=== PATIENT | male | born 1930 | race Caucasian/White ===

== ENCOUNTER 2017-10-05 03:23 | Inpatient (IN) | payer MEDICARE ==
[~2017-10-05] VITALS: Ht 144.8 cm; Wt 74.8 kg
[2017-10-05 03:30] VITALS: BP 141/56
[2017-10-05] MEDS ORDERED: CLOP75TA15 PO (04:39)
[2017-10-05] MEDS ORDERED: ATOR10TA PO (04:39)
[2017-10-05] MEDS ORDERED: CEPH-570 PO (04:39)
[2017-10-05] MEDS ORDERED: METO50TA16 PO (04:39)
[2017-10-05] MEDS ORDERED: AMLO10TA2 PO (04:39)
[2017-10-05] MEDS ORDERED: LISI40TA4 PO (04:39)
[2017-10-05] MEDS ORDERED: ONDANSETRON 4 MG/2 ML VIAL IV PRN (05:45)
[2017-10-05] MEDS ORDERED: MAGNESIUM HYDROXIDE 30 ML LIQUID UDC PO PRN (05:45)
[2017-10-05] MEDS ORDERED: MORPHINE SULFATE 2 MG/1 ML DISP.SYRIN IV PRN (05:45)
[2017-10-05] MEDS ORDERED: HYDROCODONE/APAP 5-325MG TABLET PO PRN (05:45)
[2017-10-05] MEDS ORDERED: ZOLPIDEM 5 MG TABLET PO PRN (05:45)
[2017-10-05] MEDS: IV NS 1000 ML 1,000 ML IV PRN (06:37)
[2017-10-05 08:11] LABS: *BLOOD, URINE 3+ (NEGATIVE); *CLARITY,URINE CLOUDY (CLEAR); *COLOR,URINE YELLOW (YELLOW); *KETONES,URINE TRACE (NEGATIVE); *PROTEIN,URINE 2+ (NEGATIVE); *UROBILINOGEN,URINE 0.2 E.U./dl (NORMAL); LEUKOCYTE ESTERASE ,URINE NEGATIVE (NEGATIVE); NITRITE, URINE NEGATIVE (NEGATIVE); PH,URINE 5.5 (5.0-8.0); UGLUCOSE NEGATIVE (NEGATIVE)
[2017-10-05 08:27] LABS: *BILIRUBIN,URIN 1+ (NEGATIVE)
[2017-10-05] MEDS: CLOPIDOGREL 75 MG TABLET PO SCH (09:00)
[2017-10-05 09:06] LABS: BACTERIA,URINE FEW /HPF (NONE SEEN); RBC,URINE 50-80 /HPF (0-3); SQUAMOUS EPITHELIAL CELL,UR FEW /HPF (NONE SEEN)
[2017-10-05 10:16] LABS: BASOPHILS % (AUTO) 0.6 % (0.0-2.0); EOSINOPHILS % (AUTO) 0.5 % (0.0-7.0); HEMATOCRIT 32.9 % (36.7-47.1); HEMOGLOBIN 11.1 g/dL (12.5-16.3); LYMPHOCYTES # (AUTO) 0.3 K/uL (20.0-40.0); LYMPHOCYTES % (AUTO) 3.9 % (20.5-51.5); MEAN CORPUSCULAR HEMOGLOBIN 29.8 uug (23.8-33.4); MEAN CORPUSCULAR HGB CONC 34 g/dL (32.5-36.3); MEAN CORPUSCULAR VOLUME 88.6 fL (73.0-96.2); MONOCYTES # (AUTO) 0.5 K/uL (2.0-10.0); MONOCYTES % (AUTO) 6.4 % (0.0-11.0); NEUTROPHILS # (AUTO) 6.9 K/uL (1.8-8.9); NEUTROPHILS % (AUTO) 88.6 % (38.5-71.5); PLATELET COUNT (AUTO) 334 K/uL (152-348); RED BLOOD CELL COUNT(AUTO) 3.72 MIL/uL (4.06-5.63); WHITE BLOOD COUNT (AUTO) 7.7 K/uL (3.6-10.2)
[2017-10-05] MEDS: CEFTRIAXONE 1 G in IV DEXTROSE 5% 50 ML IV SCH (10:20)
[2017-10-05] MEDS: AMLODIPINE 10 MG TABLET PO SCH (10:21)
[2017-10-05] MEDS: METOPROLOL TARTRATE 50 MG TABLET PO SCH (10:21)
[2017-10-05 10:22] LABS: ALANINE AMINOTRANSFERASE 34 U/L (16-63); ALKALINE PHOSPHATASE 64 U/L (50-136); ASPARTATE AMINOTRANSFERASE 30 U/L (15-37); BILIRUBIN,TOTAL 0.3 mg/dL (0.2-1.0); CARBON DIOXIDE 26 mmol/L (21-32); CHLORIDE 106 mmol/L (98-107); CREATININE 1.1 mg/dL (0.6-1.3); GLUCOSE 120 mg/dL (74-106); MAGNESIUM 1.7 mg/dL (1.8-2.4); PHOSPHOROUS 3.4 mg/dL (2.5-4.9); POTASSIUM 4.1 mmol/L (3.5-5.1); TOTAL PROTEIN, SERUM 6.9 g/dL (6.4-8.2); UREA NITROGEN, BLOOD 18 mg/dL (7-18)
[2017-10-05] MEDS: ACETAMINOPHEN 325 MG TABLET PO PRN (10:23)
[2017-10-05 11:08] VITALS: BP 144/61
[2017-10-05] MEDS ORDERED: MAGNESIUM SULFATE/D5W 100 ML IV SCH (11:30)
[2017-10-05] MEDS ORDERED: MIRALAX 17 GM POWD.PACK PO PRN (14:00)
[2017-10-05] MEDS ORDERED: ALBUTEROL SULFATE 2.5 MG/3 ML NEBU NEB PRN (14:00)
[2017-10-05] MEDS ORDERED: MIRALAX 17 GM POWD.PACK PO ONE (14:00)
[2017-10-05] MEDS ORDERED: IPRATROPIUM BROMIDE 0.5 MG/2.5 ML NEBU NEB PRN (14:00)
[2017-10-05] MEDS: MULTIVITAMINS,THERAPEUTIC TABLET PO SCH (15:46)
[2017-10-05] MEDS: FOLIC ACID 1 MG TABLET PO SCH (15:46)
[2017-10-05] MEDS: THIAMINE HCL 100 MG TABLET PO SCH (15:46)
[2017-10-05] MEDS: LISINOPRIL 20 MG TABLET PO SCH (16:18)
[2017-10-05] MEDS: LORAZEPAM 2 MG/1 ML VIAL IV PRN (16:25)
[2017-10-05] MEDS ORDERED: OLANZAPINE 10 MG VIAL IM ONE ×2 (17:00)
[2017-10-05 17:24] VITALS: BP 112/59
[2017-10-05 20:00] VITALS: BP 127/61
[2017-10-05] MEDS ORDERED: ATORVASTATIN 10 MG TABLET PO SCH (21:00)
[2017-10-05] MEDS: TAMSULOSIN HCL 0.4 MG CAP.SR.24H PO SCH (21:19)
[2017-10-05] MEDS: DOCUSATE SODIUM 250 MG CAPSULE PO SCH (21:20)
[2017-10-05] MEDS: FINASTERIDE 5 MG TABLET PO SCH (21:25)
[2017-10-05] MEDS ORDERED: LEVOFLOXACIN 500 MG/D5W 100 ML ONE (23:25)
[2017-10-05] MEDS: LEVOFLOXACIN 500 MG/D5W 500 MG in PREMIXED 1 EACH IV SCH (23:25)
[2017-10-06 00:19] VITALS: BP 139/65
[2017-10-06 04:00] VITALS: BP 123/56
[2017-10-06 06:58] LABS: BASOPHILS % (AUTO) 0.4 % (0.0-2.0); EOSINOPHILS % (AUTO) 0.1 % (0.0-7.0); HEMATOCRIT 29.7 % (36.7-47.1); HEMOGLOBIN 9.7 g/dL (12.5-16.3); LYMPHOCYTES # (AUTO) 0.4 K/uL (20.0-40.0); MEAN CORPUSCULAR HEMOGLOBIN 29.1 uug (23.8-33.4); MEAN CORPUSCULAR HGB CONC 33 g/dL (32.5-36.3); MEAN CORPUSCULAR VOLUME 88.9 fL (73.0-96.2); MONOCYTES # (AUTO) 0.5 K/uL (2.0-10.0); MONOCYTES % (AUTO) 7.7 % (0.0-11.0); NEUTROPHILS # (AUTO) 5.2 K/uL (1.8-8.9); NEUTROPHILS % (AUTO) 84.8 % (38.5-71.5); PLATELET COUNT (AUTO) 317 K/uL (152-348); RED BLOOD CELL COUNT(AUTO) 3.34 MIL/uL (4.06-5.63); WHITE BLOOD COUNT (AUTO) 6.2 K/uL (3.6-10.2)
[2017-10-06 07:31] LABS: THYROID STIMULATING HORMONE 0.664 mIU/mL (0.358-3.740)
[2017-10-06 07:40] LABS: IRON, SERUM 18 ug/dL (50-175)
[2017-10-06 07:55] LABS: ALANINE AMINOTRANSFERASE 30 U/L (16-63); ALKALINE PHOSPHATASE 51 U/L (50-136); ASPARTATE AMINOTRANSFERASE 41 U/L (15-37); BILIRUBIN,TOTAL 0.3 mg/dL (0.2-1.0); CARBON DIOXIDE 26 mmol/L (21-32); CHLORIDE 106 mmol/L (98-107); CREATININE 1.1 mg/dL (0.6-1.3); GLUCOSE 91 mg/dL (74-106); LIPASE 154 U/L (73-393); MAGNESIUM 2.1 mg/dL (1.8-2.4); POTASSIUM 4.2 mmol/L (3.5-5.1); TOTAL PROTEIN, SERUM 6.3 g/dL (6.4-8.2); UREA NITROGEN, BLOOD 23 mg/dL (7-18)
[2017-10-06 09:18] LABS: CHOLESTEROL 103 mg/dL (<200); HDL CHOLESTEROL 27 mg/dL (40-60); TRIGLYCERIDES 96 MG/DL (30-150)
[2017-10-06] MEDS: AMLODIPINE 10 MG TABLET PO SCH (09:18)
[2017-10-06] MEDS: MULTIVITAMINS,THERAPEUTIC TABLET PO SCH (09:18)
[2017-10-06] MEDS: FINASTERIDE 5 MG TABLET PO SCH (09:18)
[2017-10-06] MEDS: THIAMINE HCL 100 MG TABLET PO SCH (09:18)
[2017-10-06] MEDS: METOPROLOL TARTRATE 50 MG TABLET PO SCH ×2 (09:18→17:42)
[2017-10-06] MEDS: CLOPIDOGREL 75 MG TABLET PO SCH (09:20)
[2017-10-06] MEDS: FOLIC ACID 1 MG TABLET PO SCH (09:20)
[2017-10-06] MEDS: LISINOPRIL 20 MG TABLET PO SCH (09:20)
[2017-10-06] MEDS: CEFTRIAXONE 1 G in IV DEXTROSE 5% 50 ML IV SCH (09:35)
[2017-10-06] MEDS ORDERED: OSELTAMIVIR PHOSPHATE 75 MG CAPSULE PO SCH (10:15)
[2017-10-06] MEDS: FERROUS SULFATE 325 MG TABEC PO SCH ×2 (10:15→21:27)
[2017-10-06] MEDS ORDERED: CLONIDINE HCL 0.1 MG TABLET PO PRN (10:30)
[2017-10-06] MEDS: OSELTAMIVIR PHOSPHATE 75 MG CAPSULE PO SCH ×2 (11:15→21:27)
[2017-10-06] MEDS ORDERED: ALBUTEROL SULFATE 2.5 MG/3 ML NEBU NEB SCH (13:30)
[2017-10-06] MEDS ORDERED: IPRATROPIUM BROMIDE 0.5 MG/2.5 ML NEBU NEB SCH (13:30)
[2017-10-06] MEDS ORDERED: ALBUTEROL SULFATE 2.5 MG/3 ML NEBU NEB PRN (13:45)
[2017-10-06] MEDS ORDERED: IPRATROPIUM BROMIDE 0.5 MG/2.5 ML NEBU NEB PRN (13:45)
[2017-10-06 16:00] VITALS: BP 135/58
[2017-10-06] MEDS: GABAPENTIN 100 MG CAPSULE PO SCH (17:42)
[2017-10-06] MEDS: OLANZAPINE 2.5 MG TABLET PO SCH (17:42)
[2017-10-06 18:10] VITALS: BP 132/64
[2017-10-06 20:00] VITALS: BP 92/64
[2017-10-06] MEDS ORDERED: ATORVASTATIN 10 MG TABLET PO SCH (21:00)
[2017-10-06] MEDS: TAMSULOSIN HCL 0.4 MG CAP.SR.24H PO SCH (21:27)
[2017-10-06] MEDS: ATORVASTATIN 40 MG TABLET PO SCH (21:27)
[2017-10-06] MEDS: DOCUSATE SODIUM 250 MG CAPSULE PO SCH (21:27)
[2017-10-06] MEDS: ACETAMINOPHEN 325 MG TABLET PO PRN (21:27)
[2017-10-06] MEDS: CLOTRIMAZOLE/BETAMET DIPROP CREAM 15 GM TUBE TOP SCH (21:28)
[2017-10-06] MEDS: IV NS 1000 ML 1,000 ML IV PRN (21:29)
[2017-10-06] MEDS: LEVOFLOXACIN 500 MG/D5W 500 MG in PREMIXED 1 EACH IV SCH (21:44)
[2017-10-06] MEDS: IPRATROPIUM BROMIDE 0.5 MG/2.5 ML NEBU NEB SCH ×2 (22:40→22:45)
[2017-10-06] MEDS: ALBUTEROL SULFATE 2.5 MG/3 ML NEBU NEB SCH ×2 (22:40→22:45)
[2017-10-06] MEDS: METRONIDAZOLE 500 MG/NS 100ML 500 MG in PREMIXED 1 EACH IV SCH (23:18)
[2017-10-07] VITALS: BP 122/65
[2017-10-07] MEDS: IPRATROPIUM BROMIDE 0.5 MG/2.5 ML NEBU NEB SCH ×6 (02:34→22:34)
[2017-10-07] MEDS: ALBUTEROL SULFATE 2.5 MG/3 ML NEBU NEB SCH ×6 (02:35→22:34)
[2017-10-07 04:00] VITALS: BP 137/79
[2017-10-07] MEDS: METRONIDAZOLE 500 MG/NS 100ML 500 MG in PREMIXED 1 EACH IV SCH ×3 (06:23→22:45)
[2017-10-07 06:58] LABS: ALANINE AMINOTRANSFERASE 33 U/L (16-63); ALKALINE PHOSPHATASE 52 U/L (50-136); ASPARTATE AMINOTRANSFERASE 67 U/L (15-37); BILIRUBIN,TOTAL 0.3 mg/dL (0.2-1.0); CARBON DIOXIDE 26 mmol/L (21-32); CHLORIDE 109 mmol/L (98-107); CREATININE 0.9 mg/dL (0.6-1.3); GLUCOSE 87 mg/dL (74-106); MAGNESIUM 1.8 mg/dL (1.8-2.4); PHOSPHOROUS 3.1 mg/dL (2.5-4.9); POTASSIUM 3.7 mmol/L (3.5-5.1); UREA NITROGEN, BLOOD 22 mg/dL (7-18)
[2017-10-07 07:39] LABS: BASOPHILS % (AUTO) 0.2 % (0.0-2.0); EOSINOPHILS % (AUTO) 0.2 % (0.0-7.0); HEMATOCRIT 30.3 % (36.7-47.1); MONOCYTES # (AUTO) 0.4 K/uL (2.0-10.0)
[2017-10-07 07:59] LABS: LYMPHOCYTES # (AUTO) 0.4 K/uL (20.0-40.0); LYMPHOCYTES % (AUTO) 3.8 % (20.5-51.5); MEAN CORPUSCULAR HEMOGLOBIN 29.4 uug (23.8-33.4); MEAN CORPUSCULAR HGB CONC 33 g/dL (32.5-36.3); MONOCYTES % (AUTO) 4.7 % (0.0-11.0); NEUTROPHILS # (AUTO) 8.6 K/uL (1.8-8.9); NEUTROPHILS % (AUTO) 91.1 % (38.5-71.5); PLATELET COUNT (AUTO) 286 K/uL (152-348); RED BLOOD CELL COUNT(AUTO) 3.41 MIL/uL (4.06-5.63)
[2017-10-07 08:01] LABS: WHITE BLOOD COUNT (AUTO) 9.4 K/uL (3.6-10.2)
[2017-10-07 08:02] LABS: *OCCULT BLOOD STOOL POSITIVE (NEGATIVE)
[2017-10-07] MEDS: CEFTRIAXONE 1 G in IV DEXTROSE 5% 50 ML IV SCH (09:00)
[2017-10-07] MEDS: CLOTRIMAZOLE/BETAMET DIPROP CREAM 15 GM TUBE TOP SCH ×2 (09:00→21:00)
[2017-10-07] MEDS: CLOPIDOGREL 75 MG TABLET PO SCH (09:00)
[2017-10-07] MEDS: LISINOPRIL 20 MG TABLET PO SCH (09:00)
[2017-10-07] MEDS: OSELTAMIVIR PHOSPHATE 75 MG CAPSULE PO SCH ×2 (10:33→21:27)
[2017-10-07] MEDS: FOLIC ACID 1 MG TABLET PO SCH (10:34)
[2017-10-07] MEDS: FERROUS SULFATE 325 MG TABEC PO SCH ×2 (10:34→21:37)
[2017-10-07] MEDS: FINASTERIDE 5 MG TABLET PO SCH (10:34)
[2017-10-07] MEDS: MULTIVITAMINS,THERAPEUTIC TABLET PO SCH (10:34)
[2017-10-07] MEDS: OLANZAPINE 2.5 MG TABLET PO SCH ×2 (10:34→18:22)
[2017-10-07] MEDS: AMLODIPINE 10 MG TABLET PO SCH (10:34)
[2017-10-07] MEDS: METOPROLOL TARTRATE 50 MG TABLET PO SCH ×2 (10:37→18:24)
[2017-10-07] MEDS: GABAPENTIN 100 MG CAPSULE PO SCH ×2 (10:37→18:22)
[2017-10-07] MEDS: THIAMINE HCL 100 MG TABLET PO SCH (10:38)
[2017-10-07 13:44] VITALS: BP 127/55
[2017-10-07] MEDS: methylPREDNISolone SOD SUCC 40 MG/ML VIAL IV SCH ×2 (14:14→21:27)
[2017-10-07] MEDS: LORAZEPAM 1 MG TABLET PO PRN (14:24)
[2017-10-07 16:00] VITALS: BP 132/58
[2017-10-07 20:00] VITALS: BP 128/61
[2017-10-07] MEDS: ATORVASTATIN 40 MG TABLET PO SCH (21:27)
[2017-10-07] MEDS: LEVOFLOXACIN 500 MG/D5W 500 MG in PREMIXED 1 EACH IV SCH (21:28)
[2017-10-07] MEDS: TAMSULOSIN HCL 0.4 MG CAP.SR.24H PO SCH (21:39)
[2017-10-07] MEDS: IV NS 1000 ML 1,000 ML IV PRN (23:08)
[2017-10-08] VITALS: BP 144/65
[2017-10-08] MEDS: ALBUTEROL SULFATE 2.5 MG/3 ML NEBU NEB SCH ×6 (02:37→22:48)
[2017-10-08] MEDS: IPRATROPIUM BROMIDE 0.5 MG/2.5 ML NEBU NEB SCH ×6 (02:37→22:48)
[2017-10-08 04:00] VITALS: BP 106/57
[2017-10-08] MEDS: methylPREDNISolone SOD SUCC 40 MG/ML VIAL IV SCH ×3 (06:05→21:06)
[2017-10-08] MEDS: METRONIDAZOLE 500 MG/NS 100ML 500 MG in PREMIXED 1 EACH IV SCH ×3 (06:05→21:04)
[2017-10-08 07:47] LABS: BASOPHILS % (AUTO) 0.1 % (0.0-2.0); HEMOGLOBIN 10.7 g/dL (12.5-16.3); LYMPHOCYTES # (AUTO) 0.2 K/uL (20.0-40.0); LYMPHOCYTES % (AUTO) 2.2 % (20.5-51.5); MEAN CORPUSCULAR HGB CONC 33 g/dL (32.5-36.3); MEAN CORPUSCULAR VOLUME 89.3 fL (73.0-96.2); MONOCYTES % (AUTO) 0.6 % (0.0-11.0); NEUTROPHILS % (AUTO) 97.1 % (38.5-71.5); PLATELET COUNT (AUTO) 320 K/uL (152-348); WHITE BLOOD COUNT (AUTO) 8.2 K/uL (3.6-10.2)
[2017-10-08 08:00] VITALS: BP 146/72
[2017-10-08 08:02] LABS: ALANINE AMINOTRANSFERASE 32 U/L (16-63); ALKALINE PHOSPHATASE 53 U/L (50-136); ASPARTATE AMINOTRANSFERASE 46 U/L (15-37); BILIRUBIN,TOTAL 0.3 mg/dL (0.2-1.0); CARBON DIOXIDE 25 mmol/L (21-32); CHLORIDE 111 mmol/L (98-107); CREATININE 0.9 mg/dL (0.6-1.3); GLUCOSE 133 mg/dL (74-106); MAGNESIUM 1.6 mg/dL (1.8-2.4); PHOSPHOROUS 3.9 mg/dL (2.5-4.9); POTASSIUM 3.9 mmol/L (3.5-5.1); TOTAL PROTEIN, SERUM 5.9 g/dL (6.4-8.2); UREA NITROGEN, BLOOD 22 mg/dL (7-18)
[2017-10-08 08:25] LABS: BAND % (MANUAL) 7 % (0-10); LYMPHOCYTES % (MANUAL) 1 % (20-40); NEUTROPHILS % (MANUAL) 92 % (42-75)
[2017-10-08] MEDS: LISINOPRIL 20 MG TABLET PO SCH (08:32)
[2017-10-08] MEDS: OLANZAPINE 2.5 MG TABLET PO SCH ×4 (08:33→17:19)
[2017-10-08] MEDS: METOPROLOL TARTRATE 50 MG TABLET PO SCH ×2 (08:33→17:19)
[2017-10-08] MEDS: CLOPIDOGREL 75 MG TABLET PO SCH ×2 (09:00→14:00)
[2017-10-08] MEDS: OSELTAMIVIR PHOSPHATE 75 MG CAPSULE PO SCH ×3 (09:00→21:04)
[2017-10-08] MEDS: FINASTERIDE 5 MG TABLET PO SCH (09:00)
[2017-10-08] MEDS: AMLODIPINE 10 MG TABLET PO SCH ×2 (09:00→14:00)
[2017-10-08] MEDS: MULTIVITAMINS,THERAPEUTIC TABLET PO SCH (09:00)
[2017-10-08] MEDS: GABAPENTIN 100 MG CAPSULE PO SCH ×4 (09:00→17:18)
[2017-10-08] MEDS: CLOTRIMAZOLE/BETAMET DIPROP CREAM 15 GM TUBE TOP SCH ×3 (09:00→21:05)
[2017-10-08] MEDS: FOLIC ACID 1 MG TABLET PO SCH (09:00)
[2017-10-08] MEDS: THIAMINE HCL 100 MG TABLET PO SCH (09:00)
[2017-10-08] MEDS: FERROUS SULFATE 325 MG TABEC PO SCH ×2 (09:00→21:04)
[2017-10-08] MEDS: Z GUARD REMEDY PASTE 57 GM TUBE TOP PRN (09:17)
[2017-10-08] MEDS: CEFTRIAXONE 1 G in IV DEXTROSE 5% 50 ML IV SCH (09:17)
[2017-10-08] MEDS ORDERED: MAGNESIUM SULFATE/D5W 100 ML IV SCH (10:15)
[2017-10-08] MEDS: IV 1/2NS 1000 ML 1,000 ML IV PRN (10:59)
[2017-10-08] MEDS: VANCOMYCIN FOR PO/GT/NG USE PO SCH ×2 (11:54→17:19)
[2017-10-08 13:13] VITALS: BP 115/51
[2017-10-08] MEDS ORDERED: IV LACTATED RINGERS SOLUTION 1,000 ML BAG IV ONE (15:16)
[2017-10-08] MEDS ORDERED: PROPOFOL 200 MG/20 ML BOTTLE IV ONE (15:16)
[2017-10-08 15:56] VITALS: BP 118/55
[2017-10-08] MEDS: LORAZEPAM 1 MG TABLET PO PRN (17:56)
[2017-10-08 19:00] VITALS: BP 98/44
[2017-10-08] MEDS ORDERED: methylPREDNISolone SOD SUCC 40 MG/ML VIAL ONE (20:57)
[2017-10-08] MEDS ORDERED: methylPREDNISolone SOD SUCC 125 MG/2 ML VIAL ONE (20:58)
[2017-10-08] MEDS: ATORVASTATIN 40 MG TABLET PO SCH (21:04)
[2017-10-08] MEDS: TAMSULOSIN HCL 0.4 MG CAP.SR.24H PO SCH (21:05)
[2017-10-09] VITALS: BP 110/59
[2017-10-09] MEDS: VANCOMYCIN FOR PO/GT/NG USE PO SCH ×5 (01:01→23:09)
[2017-10-09] MEDS: ALBUTEROL SULFATE 2.5 MG/3 ML NEBU NEB SCH ×6 (02:48→23:13)
[2017-10-09] MEDS: IPRATROPIUM BROMIDE 0.5 MG/2.5 ML NEBU NEB SCH ×6 (02:48→23:13)
[2017-10-09 04:00] VITALS: BP 129/56
[2017-10-09] MEDS ORDERED: methylPREDNISolone SOD SUCC 125 MG/2 ML VIAL ONE (05:18)
[2017-10-09] MEDS: METRONIDAZOLE 500 MG/NS 100ML 500 MG in PREMIXED 1 EACH IV SCH ×3 (05:29→21:57)
[2017-10-09] MEDS: methylPREDNISolone SOD SUCC 40 MG/ML VIAL IV SCH ×2 (05:29→21:07)
[2017-10-09 08:08] LABS: BASOPHILS % (AUTO) 0.1 % (0.0-2.0); EOSINOPHILS % (AUTO) 0.1 % (0.0-7.0); HEMATOCRIT 37.7 % (36.7-47.1); HEMOGLOBIN 12.2 g/dL (12.5-16.3); LYMPHOCYTES # (AUTO) 0.3 K/uL (20.0-40.0); LYMPHOCYTES % (AUTO) 3.4 % (20.5-51.5); MEAN CORPUSCULAR HEMOGLOBIN 28.9 uug (23.8-33.4); MEAN CORPUSCULAR HGB CONC 32 g/dL (32.5-36.3); MEAN CORPUSCULAR VOLUME 89.2 fL (73.0-96.2); MONOCYTES # (AUTO) 0.2 K/uL (2.0-10.0); MONOCYTES % (AUTO) 2.3 % (0.0-11.0); NEUTROPHILS # (AUTO) 8.7 K/uL (1.8-8.9); NEUTROPHILS % (AUTO) 94.1 % (38.5-71.5); PLATELET COUNT (AUTO) 422 K/uL (152-348); RED BLOOD CELL COUNT(AUTO) 4.23 MIL/uL (4.06-5.63); WHITE BLOOD COUNT (AUTO) 9.2 K/uL (3.6-10.2)
[2017-10-09 08:30] LABS: ALANINE AMINOTRANSFERASE 26 U/L (16-63); ALKALINE PHOSPHATASE 55 U/L (50-136); ASPARTATE AMINOTRANSFERASE 34 U/L (15-37); BILIRUBIN,TOTAL 0.2 mg/dL (0.2-1.0); CARBON DIOXIDE 26 mmol/L (21-32); CHLORIDE 109 mmol/L (98-107); GLUCOSE 222 mg/dL (74-106); MAGNESIUM 2.3 mg/dL (1.8-2.4); POTASSIUM 3.5 mmol/L (3.5-5.1); TOTAL PROTEIN, SERUM 6.7 g/dL (6.4-8.2); UREA NITROGEN, BLOOD 32 mg/dL (7-18)
[2017-10-09] MEDS: FERROUS SULFATE 325 MG TABEC PO SCH ×2 (08:37→21:08)
[2017-10-09] MEDS: FINASTERIDE 5 MG TABLET PO SCH (08:38)
[2017-10-09] MEDS: METOPROLOL TARTRATE 50 MG TABLET PO SCH ×2 (08:38→17:04)
[2017-10-09] MEDS: GABAPENTIN 100 MG CAPSULE PO SCH ×3 (08:38→17:03)
[2017-10-09] MEDS: LISINOPRIL 20 MG TABLET PO SCH (08:38)
[2017-10-09] MEDS: AMLODIPINE 10 MG TABLET PO SCH (08:38)
[2017-10-09] MEDS: CEFTRIAXONE 1 G in IV DEXTROSE 5% 50 ML IV SCH (08:39)
[2017-10-09] MEDS: CLOPIDOGREL 75 MG TABLET PO SCH (08:40)
[2017-10-09] MEDS: Z GUARD REMEDY PASTE 57 GM TUBE TOP PRN (08:41)
[2017-10-09] MEDS: MULTIVITAMINS,THERAPEUTIC TABLET PO SCH (08:45)
[2017-10-09] MEDS: OLANZAPINE 2.5 MG TABLET PO SCH ×3 (08:45→17:03)
[2017-10-09] MEDS: IV 1/2NS 1000 ML 1,000 ML IV PRN ×2 (08:46→23:10)
[2017-10-09] MEDS: CLOTRIMAZOLE/BETAMET DIPROP CREAM 15 GM TUBE TOP SCH ×2 (09:00→21:23)
[2017-10-09] MEDS: OSELTAMIVIR PHOSPHATE 75 MG CAPSULE PO SCH ×2 (09:54→21:09)
[2017-10-09 10:27] VITALS: BP 117/53
[2017-10-09 14:26] VITALS: BP 104/65
[2017-10-09] MEDS: PANTOPRAZOLE SODIUM 40 MG TABLET.DR PO SCH (17:03)
[2017-10-09 20:12] VITALS: BP 114/59
[2017-10-09] MEDS: TAMSULOSIN HCL 0.4 MG CAP.SR.24H PO SCH (21:08)
[2017-10-09] MEDS: ATORVASTATIN 40 MG TABLET PO SCH (21:08)
[2017-10-10] VITALS: BP 108/60
[2017-10-10 02:14] VITALS: BP 108/60
[2017-10-10] MEDS: ALBUTEROL SULFATE 2.5 MG/3 ML NEBU NEB SCH ×6 (02:51→22:53)
[2017-10-10] MEDS: IPRATROPIUM BROMIDE 0.5 MG/2.5 ML NEBU NEB SCH ×6 (02:51→22:52)
[2017-10-10 03:44] VITALS: BP 139/57
[2017-10-10] MEDS: VANCOMYCIN FOR PO/GT/NG USE PO SCH ×3 (05:01→17:52)
[2017-10-10] MEDS: METRONIDAZOLE 500 MG/NS 100ML 500 MG in PREMIXED 1 EACH IV SCH ×3 (05:02→21:01)
[2017-10-10 05:07] LABS: *IMMUNOGLOBULIN G, SERUM 703 mg/dL (700-1600); IMMUNOGLOBULIN A, SERUM 343 mg/dL (61-437); IMMUNOGLOBULIN M, SERUM 114 mg/dL (15-143)
[2017-10-10] MEDS: PANTOPRAZOLE SODIUM 40 MG TABLET.DR PO SCH ×2 (06:32→17:52)
[2017-10-10 06:57] LABS: ALANINE AMINOTRANSFERASE 26 U/L (16-63); ALKALINE PHOSPHATASE 54 U/L (50-136); ASPARTATE AMINOTRANSFERASE 19 U/L (15-37); BILIRUBIN,TOTAL 0.2 mg/dL (0.2-1.0); CARBON DIOXIDE 27 mmol/L (21-32); CHLORIDE 108 mmol/L (98-107); CREATININE 0.9 mg/dL (0.6-1.3); GLUCOSE 214 mg/dL (74-106); PHOSPHOROUS 1.7 mg/dL (2.5-4.9); POTASSIUM 3.1 mmol/L (3.5-5.1); TOTAL PROTEIN, SERUM 6.2 g/dL (6.4-8.2); UREA NITROGEN, BLOOD 25 mg/dL (7-18)
[2017-10-10 07:01] LABS: BASOPHILS % (AUTO) 0.2 % (0.0-2.0); HEMATOCRIT 34.5 % (36.7-47.1); HEMOGLOBIN 11.2 g/dL (12.5-16.3); LYMPHOCYTES # (AUTO) 0.2 K/uL (20.0-40.0); LYMPHOCYTES % (AUTO) 1.2 % (20.5-51.5); MEAN CORPUSCULAR HEMOGLOBIN 28.1 uug (23.8-33.4); MEAN CORPUSCULAR HGB CONC 33 g/dL (32.5-36.3); MEAN CORPUSCULAR VOLUME 86.6 fL (73.0-96.2); MONOCYTES # (AUTO) 0.3 K/uL (2.0-10.0); MONOCYTES % (AUTO) 1.6 % (0.0-11.0); NEUTROPHILS # (AUTO) 16.8 K/uL (1.8-8.9); PLATELET COUNT (AUTO) 437 K/uL (152-348); RED BLOOD CELL COUNT(AUTO) 3.99 MIL/uL (4.06-5.63)
[2017-10-10 07:24] LABS: WHITE BLOOD COUNT (AUTO) 17.3 K/uL (3.6-10.2)
[2017-10-10] MEDS: LISINOPRIL 20 MG TABLET PO SCH (09:00)
[2017-10-10] MEDS: AMLODIPINE 10 MG TABLET PO SCH (09:00)
[2017-10-10] MEDS: GABAPENTIN 100 MG CAPSULE PO SCH ×3 (09:00→17:52)
[2017-10-10] MEDS: FERROUS SULFATE 325 MG TABEC PO SCH ×2 (09:00→20:44)
[2017-10-10] MEDS: CLOTRIMAZOLE/BETAMET DIPROP CREAM 15 GM TUBE TOP SCH ×3 (09:00→20:51)
[2017-10-10] MEDS: ACETAMINOPHEN 325 MG TABLET PO PRN (09:00)
[2017-10-10] MEDS: FINASTERIDE 5 MG TABLET PO SCH (09:00)
[2017-10-10] MEDS: methylPREDNISolone SOD SUCC 40 MG/ML VIAL IV SCH (09:01)
[2017-10-10] MEDS: Z GUARD REMEDY PASTE 57 GM TUBE TOP PRN (09:01)
[2017-10-10] MEDS: METOPROLOL TARTRATE 50 MG TABLET PO SCH ×2 (09:01→17:52)
[2017-10-10] MEDS: OLANZAPINE 2.5 MG TABLET PO SCH ×3 (09:16→17:52)
[2017-10-10] MEDS: MULTIVITAMINS,THERAPEUTIC TABLET PO SCH (09:16)
[2017-10-10] MEDS: OSELTAMIVIR PHOSPHATE 75 MG CAPSULE PO SCH ×2 (09:19→20:45)
[2017-10-10] MEDS: CLOPIDOGREL 75 MG TABLET PO SCH (09:20)
[2017-10-10 10:11] LABS: BAND % (MANUAL) 5 % (0-10); NEUTROPHILS % (MANUAL) 95 % (42-75)
[2017-10-10 10:41] VITALS: BP 137/70
[2017-10-10] MEDS ORDERED: POTASSIUM CHLORIDE 20 MEQ TAB.PRT.SR PO ONE (11:45)
[2017-10-10] MEDS: IV 1/2NS 1000 ML 1,000 ML IV PRN (13:54)
[2017-10-10 14:07] LABS: ALBUMIN 2.7 g/dL (2.9-4.4); ALPHA-1-GLOBULIN 0.3 g/dL (0.0-0.4); ALPHA-2-GLOBULIN 0.8 g/dL (0.4-1.0); GAMMA GLOBULIN 0.7 g/dL (0.4-1.8); GLOBULIN, TOTAL 2.8 g/dL (2.2-3.9); M-SPIKE Not Observed g/dL (Not Observed)
[2017-10-10 14:43] VITALS: BP 123/56
[2017-10-10] MEDS ORDERED: SODIUM PHOSPHATE MM 15 MM in IV DEXTROSE 5% 250 ML IV ONE (15:30)
[2017-10-10] MEDS: LORAZEPAM 1 MG TABLET PO PRN (17:52)
[2017-10-10 19:00] VITALS: BP_SYST 149; BP_SYST 90; BP_DIAS 59; BP_DIAS 69
[2017-10-10] MEDS: TAMSULOSIN HCL 0.4 MG CAP.SR.24H PO SCH (20:45)
[2017-10-10] MEDS: ATORVASTATIN 40 MG TABLET PO SCH (20:45)
[2017-10-11] VITALS: BP 152/59
[2017-10-11] MEDS: VANCOMYCIN FOR PO/GT/NG USE PO SCH ×5 (00:10→23:21)
[2017-10-11] MEDS: ALBUTEROL SULFATE 2.5 MG/3 ML NEBU NEB SCH ×6 (03:03→23:02)
[2017-10-11] MEDS: IPRATROPIUM BROMIDE 0.5 MG/2.5 ML NEBU NEB SCH ×6 (03:03→23:02)
[2017-10-11 04:00] VITALS: BP 152/62
[2017-10-11 06:07] LABS: *IMMUNOGLOBULIN G, SERUM 743 mg/dL (700-1600); IMMUNOGLOBULIN A, SERUM 364 mg/dL (61-437); IMMUNOGLOBULIN M, SERUM 123 mg/dL (15-143)
[2017-10-11] MEDS: METRONIDAZOLE 500 MG/NS 100ML 500 MG in PREMIXED 1 EACH IV SCH ×3 (06:08→21:52)
[2017-10-11] MEDS: PANTOPRAZOLE SODIUM 40 MG TABLET.DR PO SCH ×2 (06:31→17:36)
[2017-10-11 07:10] VITALS: BP 163/79
[2017-10-11 08:00] LABS: BASOPHILS % (AUTO) 0.1 % (0.0-2.0); HEMATOCRIT 32.3 % (36.7-47.1); HEMOGLOBIN 10.8 g/dL (12.5-16.3); LYMPHOCYTES # (AUTO) 0.3 K/uL (20.0-40.0); LYMPHOCYTES % (AUTO) 2.4 % (20.5-51.5); MEAN CORPUSCULAR HGB CONC 34 g/dL (32.5-36.3); MEAN CORPUSCULAR VOLUME 86.6 fL (73.0-96.2); MONOCYTES # (AUTO) 0.5 K/uL (2.0-10.0); MONOCYTES % (AUTO) 3.8 % (0.0-11.0); NEUTROPHILS # (AUTO) 12.9 K/uL (1.8-8.9); NEUTROPHILS % (AUTO) 93.7 % (38.5-71.5); PLATELET COUNT (AUTO) 423 K/uL (152-348); RED BLOOD CELL COUNT(AUTO) 3.73 MIL/uL (4.06-5.63); WHITE BLOOD COUNT (AUTO) 13.8 K/uL (3.6-10.2)
[2017-10-11 08:50] LABS: CARBON DIOXIDE 29 mmol/L (21-32); CHLORIDE 110 mmol/L (98-107); CREATININE 0.9 mg/dL (0.6-1.3); GLUCOSE 157 mg/dL (74-106); POTASSIUM 3.3 mmol/L (3.5-5.1); UREA NITROGEN, BLOOD 21 mg/dL (7-18)
[2017-10-11] MEDS: OLANZAPINE 2.5 MG TABLET PO SCH ×3 (09:14→17:35)
[2017-10-11] MEDS: GABAPENTIN 100 MG CAPSULE PO SCH ×4 (09:14→17:35)
[2017-10-11] MEDS: predniSONE 20 MG TABLET PO SCH (09:14)
[2017-10-11] MEDS: FERROUS SULFATE 325 MG TABEC PO SCH ×2 (09:14→20:31)
[2017-10-11] MEDS: AMLODIPINE 10 MG TABLET PO SCH (09:15)
[2017-10-11] MEDS: FINASTERIDE 5 MG TABLET PO SCH (09:15)
[2017-10-11] MEDS: METOPROLOL TARTRATE 50 MG TABLET PO SCH ×2 (09:16→17:36)
[2017-10-11] MEDS: LISINOPRIL 20 MG TABLET PO SCH (09:17)
[2017-10-11] MEDS: LORAZEPAM 2 MG/1 ML VIAL IV PRN ×2 (09:30→22:44)
[2017-10-11] MEDS: CLOPIDOGREL 75 MG TABLET PO SCH (10:28)
[2017-10-11] MEDS: MULTIVITAMINS,THERAPEUTIC TABLET PO SCH (10:28)
[2017-10-11] MEDS: CLOTRIMAZOLE/BETAMET DIPROP CREAM 15 GM TUBE TOP SCH ×2 (10:29→20:31)
[2017-10-11] MEDS ORDERED: POTASSIUM CHLORIDE 20 MEQ TAB.PRT.SR PO ONE (11:15)
[2017-10-11 11:57] VITALS: BP 146/72
[2017-10-11 16:07] VITALS: BP 140/67
[2017-10-11] MEDS: IV D5W 1000ML 1,000 ML IV PRN (18:28)
[2017-10-11 20:00] VITALS: BP 159/78
[2017-10-11] MEDS: ATORVASTATIN 40 MG TABLET PO SCH (20:31)
[2017-10-11] MEDS: TAMSULOSIN HCL 0.4 MG CAP.SR.24H PO SCH (20:31)
[2017-10-12] MEDS: ALBUTEROL SULFATE 2.5 MG/3 ML NEBU NEB SCH ×6 (03:08→22:38)
[2017-10-12] MEDS: IPRATROPIUM BROMIDE 0.5 MG/2.5 ML NEBU NEB SCH ×6 (03:08→22:38)
[2017-10-12] MEDS: METRONIDAZOLE 500 MG/NS 100ML 500 MG in PREMIXED 1 EACH IV SCH ×2 (05:10→14:38)
[2017-10-12] MEDS: VANCOMYCIN FOR PO/GT/NG USE PO SCH ×3 (06:21→17:38)
[2017-10-12] MEDS: PANTOPRAZOLE SODIUM 40 MG TABLET.DR PO SCH ×2 (06:21→16:45)
[2017-10-12 06:30] VITALS: BP 151/94
[2017-10-12 07:37] VITALS: BP 156/70
[2017-10-12] MEDS: LORAZEPAM 2 MG/1 ML VIAL IV PRN (08:48)
[2017-10-12] MEDS: predniSONE 20 MG TABLET PO SCH (09:20)
[2017-10-12] MEDS: FERROUS SULFATE 325 MG TABEC PO SCH ×2 (09:20→20:23)
[2017-10-12] MEDS: AMLODIPINE 10 MG TABLET PO SCH (09:21)
[2017-10-12] MEDS: CLOPIDOGREL 75 MG TABLET PO SCH (09:21)
[2017-10-12] MEDS: METOPROLOL TARTRATE 50 MG TABLET PO SCH ×2 (09:21→16:46)
[2017-10-12] MEDS: GABAPENTIN 100 MG CAPSULE PO SCH ×3 (09:21→16:46)
[2017-10-12] MEDS: MULTIVITAMINS,THERAPEUTIC TABLET PO SCH (09:22)
[2017-10-12] MEDS: CLOTRIMAZOLE/BETAMET DIPROP CREAM 15 GM TUBE TOP SCH ×2 (09:22→20:26)
[2017-10-12] MEDS: LISINOPRIL 20 MG TABLET PO SCH (09:22)
[2017-10-12] MEDS: FINASTERIDE 5 MG TABLET PO SCH (09:22)
[2017-10-12] MEDS: OLANZAPINE 2.5 MG TABLET PO SCH ×4 (09:22→17:38)
[2017-10-12 11:30] VITALS: BP 165/70
[2017-10-12] MEDS: BOOST PLUS 237 ML LIQUID (VERY VANILLA) PO SCH ×2 (11:51→16:45)
[2017-10-12] MEDS ORDERED: METR500T4 PO (13:53)
[2017-10-12] MEDS ORDERED: FINA5TAB11 PO (13:53)
[2017-10-12] MEDS ORDERED: ATOR40TA PO (13:53)
[2017-10-12] MEDS ORDERED: OLAN2.5T3 PO (13:53)
[2017-10-12] MEDS ORDERED: GABA-532 PO (13:53)
[2017-10-12] MEDS ORDERED: ALBU2.5V7 NEB (13:53)
[2017-10-12] MEDS ORDERED: TAMS-3 PO (13:53)
[2017-10-12] MEDS ORDERED: VANC500V PO (13:53)
[2017-10-12] MEDS ORDERED: METO50TA16 PO (13:53)
[2017-10-12] MEDS ORDERED: FERR325T28 PO (13:53)
[2017-10-12] MEDS ORDERED: PRED10TA PO (14:00)
[2017-10-12] MEDS ORDERED: PRED20TA PO (14:00)
[2017-10-12] MEDS ORDERED: OLANZAPINE 2.5 MG TABLET PO SCH (14:15)
[2017-10-12 15:43] VITALS: BP 119/53
[2017-10-12] MEDS: IV D5W 1000ML 1,000 ML IV PRN (18:26)
[2017-10-12 20:00] VITALS: BP 142/71
[2017-10-12] MEDS: ATORVASTATIN 40 MG TABLET PO SCH (20:23)
[2017-10-12] MEDS: TAMSULOSIN HCL 0.4 MG CAP.SR.24H PO SCH (20:23)
[2017-10-13] MEDS: LORAZEPAM 2 MG/1 ML VIAL IV PRN ×2 (01:32→13:35)
[2017-10-13] MEDS: ALBUTEROL SULFATE 2.5 MG/3 ML NEBU NEB SCH ×7 (03:22→23:09)
[2017-10-13] MEDS: IPRATROPIUM BROMIDE 0.5 MG/2.5 ML NEBU NEB SCH ×7 (03:22→23:09)
[2017-10-13 05:44] VITALS: BP 170/88
[2017-10-13] MEDS: PANTOPRAZOLE SODIUM 40 MG TABLET.DR PO SCH ×2 (06:02→16:45)
[2017-10-13] MEDS: VANCOMYCIN FOR PO/GT/NG USE PO SCH ×5 (06:02→23:00)
[2017-10-13] MEDS: BOOST PLUS 237 ML LIQUID (VERY VANILLA) PO SCH ×2 (08:04→16:45)
[2017-10-13] MEDS: predniSONE 20 MG TABLET PO SCH (09:02)
[2017-10-13] MEDS: FINASTERIDE 5 MG TABLET PO SCH (09:03)
[2017-10-13] MEDS: MULTIVITAMINS,THERAPEUTIC TABLET PO SCH (09:03)
[2017-10-13] MEDS: GABAPENTIN 100 MG CAPSULE PO SCH ×3 (09:03→16:45)
[2017-10-13] MEDS: LISINOPRIL 20 MG TABLET PO SCH (09:04)
[2017-10-13] MEDS: CLOPIDOGREL 75 MG TABLET PO SCH (09:04)
[2017-10-13] MEDS: METOPROLOL TARTRATE 50 MG TABLET PO SCH ×2 (09:04→16:45)
[2017-10-13] MEDS: AMLODIPINE 10 MG TABLET PO SCH (09:04)
[2017-10-13] MEDS: FERROUS SULFATE 325 MG TABEC PO SCH ×2 (09:04→21:00)
[2017-10-13] MEDS: CLOTRIMAZOLE/BETAMET DIPROP CREAM 15 GM TUBE TOP SCH ×2 (09:05→21:16)
[2017-10-13] MEDS: OLANZAPINE 2.5 MG TABLET PO SCH (09:07)
[2017-10-13] MEDS: IV D5W 1000ML 1,000 ML IV PRN (11:10)
[2017-10-13] MEDS: OLANZAPINE ZYDIS 5 MG TAB.RAPDIS SL SCH ×2 (12:00→16:45)
[2017-10-13 14:06] VITALS: BP 142/62
[2017-10-13 16:08] VITALS: BP 131/70
[2017-10-13 19:00] VITALS: BP 160/72
[2017-10-13] MEDS: TAMSULOSIN HCL 0.4 MG CAP.SR.24H PO SCH (21:00)
[2017-10-13] MEDS: ATORVASTATIN 40 MG TABLET PO SCH (21:00)
[2017-10-14] MEDS: ALBUTEROL SULFATE 2.5 MG/3 ML NEBU NEB SCH ×6 (03:17→23:07)
[2017-10-14] MEDS: IPRATROPIUM BROMIDE 0.5 MG/2.5 ML NEBU NEB SCH ×6 (03:17→23:06)
[2017-10-14 04:00] VITALS: BP 155/72
[2017-10-14] MEDS: VANCOMYCIN FOR PO/GT/NG USE PO SCH ×3 (05:46→17:23)
[2017-10-14] MEDS: IV D5W 1000ML 1,000 ML IV PRN ×2 (05:59→22:33)
[2017-10-14] MEDS: PANTOPRAZOLE SODIUM 40 MG TABLET.DR PO SCH ×2 (06:00→17:21)
[2017-10-14] MEDS: LORAZEPAM 1 MG TABLET PO PRN (08:02)
[2017-10-14] MEDS: METOPROLOL TARTRATE 50 MG TABLET PO SCH ×2 (08:03→17:21)
[2017-10-14] MEDS: OLANZAPINE ZYDIS 5 MG TAB.RAPDIS SL SCH ×3 (08:03→17:22)
[2017-10-14] MEDS: predniSONE 20 MG TABLET PO SCH (08:03)
[2017-10-14] MEDS: AMLODIPINE 10 MG TABLET PO SCH (08:03)
[2017-10-14] MEDS: FERROUS SULFATE 325 MG TABEC PO SCH ×2 (08:03→21:51)
[2017-10-14] MEDS: BOOST PLUS 237 ML LIQUID (VERY VANILLA) PO SCH ×2 (08:03→17:21)
[2017-10-14] MEDS: LISINOPRIL 20 MG TABLET PO SCH (08:03)
[2017-10-14] MEDS: MULTIVITAMINS,THERAPEUTIC TABLET PO SCH (08:03)
[2017-10-14] MEDS: FINASTERIDE 5 MG TABLET PO SCH (08:03)
[2017-10-14] MEDS: GABAPENTIN 100 MG CAPSULE PO SCH ×3 (08:03→17:21)
[2017-10-14] MEDS: CLOPIDOGREL 75 MG TABLET PO SCH (08:04)
[2017-10-14] MEDS: CLOTRIMAZOLE/BETAMET DIPROP CREAM 15 GM TUBE TOP SCH ×2 (08:04→21:51)
[2017-10-14 12:13] VITALS: BP 155/84
[2017-10-14] MEDS ORDERED: ENALAPRILAT DIHYDRATE INJ 2.5 MG in IV NORMAL SALINE 50 ML IV PRN (12:30)
[2017-10-14] MEDS ORDERED: DEXTROSE 50% 50 ML DISP.SYRIN IV PRN (12:30)
[2017-10-14] MEDS: BLOOD SUGAR DIAGNOSTIC 1 EACH STRIP VI SCH ×3 (12:57→22:29)
[2017-10-14] MEDS: LORAZEPAM 2 MG/1 ML VIAL IV PRN ×2 (15:27→22:50)
[2017-10-14] MEDS: INSULIN REGULAR, HUMAN 300 UNIT/3 ML VIAL SQ PRN (18:13)
[2017-10-14 19:00] VITALS: BP 149/79
[2017-10-14] MEDS: TAMSULOSIN HCL 0.4 MG CAP.SR.24H PO SCH (21:50)
[2017-10-14] MEDS: ATORVASTATIN 40 MG TABLET PO SCH (21:51)
[2017-10-14] MEDS: ACETAMINOPHEN 325 MG TABLET PO PRN (21:51)
[2017-10-15] VITALS: BP 163/67
[2017-10-15] MEDS: VANCOMYCIN FOR PO/GT/NG USE PO SCH ×5 (00:21→23:20)
[2017-10-15] MEDS: ALBUTEROL SULFATE 2.5 MG/3 ML NEBU NEB SCH ×6 (03:18→22:56)
[2017-10-15] MEDS: IPRATROPIUM BROMIDE 0.5 MG/2.5 ML NEBU NEB SCH ×6 (03:18→22:56)
[2017-10-15 04:00] VITALS: BP 153/71
[2017-10-15] MEDS: LORAZEPAM 2 MG/1 ML VIAL IV PRN ×2 (04:27→10:40)
[2017-10-15] MEDS: PANTOPRAZOLE SODIUM 40 MG TABLET.DR PO SCH ×2 (06:23→17:46)
[2017-10-15 06:35] LABS: BASOPHILS % (AUTO) 0.1 % (0.0-2.0); EOSINOPHILS % (AUTO) 0.1 % (0.0-7.0); HEMATOCRIT 34.6 % (36.7-47.1); LYMPHOCYTES # (AUTO) 0.3 K/uL (20.0-40.0); LYMPHOCYTES % (AUTO) 2.4 % (20.5-51.5); MEAN CORPUSCULAR HGB CONC 32 g/dL (32.5-36.3); MONOCYTES # (AUTO) 0.7 K/uL (2.0-10.0); MONOCYTES % (AUTO) 5.5 % (0.0-11.0); NEUTROPHILS # (AUTO) 11.5 K/uL (1.8-8.9); NEUTROPHILS % (AUTO) 91.9 % (38.5-71.5); PLATELET COUNT (AUTO) 421 K/uL (152-348); RED BLOOD CELL COUNT(AUTO) 3.93 MIL/uL (4.06-5.63); WHITE BLOOD COUNT (AUTO) 12.6 K/uL (3.6-10.2)
[2017-10-15 06:53] LABS: ALANINE AMINOTRANSFERASE 28 U/L (16-63); ALKALINE PHOSPHATASE 52 U/L (50-136); ASPARTATE AMINOTRANSFERASE 19 U/L (15-37); BILIRUBIN,TOTAL 0.5 mg/dL (0.2-1.0); CHLORIDE 104 mmol/L (98-107); CREATININE 0.8 mg/dL (0.6-1.3); GLUCOSE 134 mg/dL (74-106); PHOSPHOROUS 3.4 mg/dL (2.5-4.9); POTASSIUM 3.1 mmol/L (3.5-5.1); TOTAL PROTEIN, SERUM 6.1 g/dL (6.4-8.2); UREA NITROGEN, BLOOD 12 mg/dL (7-18)
[2017-10-15] MEDS: BLOOD SUGAR DIAGNOSTIC 1 EACH STRIP VI SCH ×4 (07:48→20:48)
[2017-10-15 07:55] LABS: CARBON DIOXIDE 39 mmol/L (21-32)
[2017-10-15] MEDS: CLOPIDOGREL 75 MG TABLET PO SCH (08:36)
[2017-10-15] MEDS: FINASTERIDE 5 MG TABLET PO SCH (08:36)
[2017-10-15] MEDS: FERROUS SULFATE 325 MG TABEC PO SCH ×2 (08:36→20:47)
[2017-10-15] MEDS: LISINOPRIL 20 MG TABLET PO SCH (08:37)
[2017-10-15] MEDS: GABAPENTIN 100 MG CAPSULE PO SCH ×3 (08:37→17:46)
[2017-10-15] MEDS: predniSONE 20 MG TABLET PO SCH (08:37)
[2017-10-15] MEDS: AMLODIPINE 10 MG TABLET PO SCH (08:37)
[2017-10-15] MEDS: MULTIVITAMINS,THERAPEUTIC TABLET PO SCH (08:38)
[2017-10-15] MEDS: OLANZAPINE ZYDIS 5 MG TAB.RAPDIS SL SCH ×3 (08:38→17:47)
[2017-10-15] MEDS: METOPROLOL TARTRATE 50 MG TABLET PO SCH ×2 (08:38→17:46)
[2017-10-15] MEDS: CLOTRIMAZOLE/BETAMET DIPROP CREAM 15 GM TUBE TOP SCH ×2 (08:47→20:47)
[2017-10-15] MEDS: Z GUARD REMEDY PASTE 57 GM TUBE TOP PRN (08:47)
[2017-10-15] MEDS: INSULIN REGULAR, HUMAN 300 UNIT/3 ML VIAL SQ PRN ×3 (08:52→17:11)
[2017-10-15] MEDS: BOOST PLUS 237 ML LIQUID (VERY VANILLA) PO SCH ×2 (09:56→17:13)
[2017-10-15 12:07] LABS: A/G RATIO 0.9 (0.7-1.7); ALBUMIN 2.8 g/dL (2.9-4.4); ALPHA-1-GLOBULIN 0.3 g/dL (0.0-0.4); BETA GLOBULIN 0.9 g/dL (0.7-1.3); GAMMA GLOBULIN 0.8 g/dL (0.4-1.8); M-SPIKE Not Observed g/dL (Not Observed)
[2017-10-15] MEDS ORDERED: POTASSIUM CHLORIDE 20 MEQ TAB.PRT.SR PO ONE (12:45)
[2017-10-15 20:04] VITALS: BP 154/77
[2017-10-15] MEDS: ACETAMINOPHEN 325 MG TABLET PO PRN (20:47)
[2017-10-15] MEDS: ATORVASTATIN 40 MG TABLET PO SCH (20:47)
[2017-10-15] MEDS: TAMSULOSIN HCL 0.4 MG CAP.SR.24H PO SCH (20:47)
[2017-10-16] MEDS: IPRATROPIUM BROMIDE 0.5 MG/2.5 ML NEBU NEB SCH ×6 (03:26→19:30)
[2017-10-16] MEDS: ALBUTEROL SULFATE 2.5 MG/3 ML NEBU NEB SCH ×6 (03:26→19:30)
[2017-10-16] MEDS: LORAZEPAM 2 MG/1 ML VIAL IV PRN (03:45)
[2017-10-16 04:57] VITALS: BP 133/87
[2017-10-16] MEDS: PANTOPRAZOLE SODIUM 40 MG TABLET.DR PO SCH ×2 (06:10→17:00)
[2017-10-16] MEDS: VANCOMYCIN FOR PO/GT/NG USE PO SCH ×3 (06:10→17:39)
[2017-10-16] MEDS: BLOOD SUGAR DIAGNOSTIC 1 EACH STRIP VI SCH ×3 (06:47→17:30)
[2017-10-16] MEDS: predniSONE 20 MG TABLET PO SCH (08:00)
[2017-10-16] MEDS: BOOST PLUS 237 ML LIQUID (VERY VANILLA) PO SCH ×2 (08:00→17:00)
[2017-10-16] MEDS: METOPROLOL TARTRATE 50 MG TABLET PO SCH (09:00)
[2017-10-16] MEDS: MULTIVITAMINS,THERAPEUTIC TABLET PO SCH (09:00)
[2017-10-16] MEDS: CLOTRIMAZOLE/BETAMET DIPROP CREAM 15 GM TUBE TOP SCH (09:00)
[2017-10-16] MEDS: FINASTERIDE 5 MG TABLET PO SCH (09:00)
[2017-10-16] MEDS: FERROUS SULFATE 325 MG TABEC PO SCH (09:00)
[2017-10-16] MEDS: AMLODIPINE 10 MG TABLET PO SCH (09:00)
[2017-10-16] MEDS: LISINOPRIL 20 MG TABLET PO SCH (09:00)
[2017-10-16] MEDS: OLANZAPINE ZYDIS 5 MG TAB.RAPDIS SL SCH ×3 (09:00→17:00)
[2017-10-16] MEDS: CLOPIDOGREL 75 MG TABLET PO SCH (09:00)
[2017-10-16] MEDS ORDERED: METOPROLOL TARTRATE 25 MG TABLET PO SCH ×2 (12:45→21:00)
[2017-10-16] MEDS: GABAPENTIN 300 MG CAPSULE PO SCH ×2 (13:00→17:00)
[2017-10-16] MEDS ORDERED: GABAPENTIN 100 MG CAPSULE PO SCH (13:00)
[2017-10-16] MEDS ORDERED: METOPROLOL TARTRATE 25 MG TABLET PO ONE (13:00)
[2017-10-16 13:30] VITALS: BP 130/82
[2017-10-16 17:57] LABS: CARBON DIOXIDE 39 mmol/L (21-32); CHLORIDE 104 mmol/L (98-107); CREATININE 0.8 mg/dL (0.6-1.3); GLUCOSE 221 mg/dL (74-106); POTASSIUM 3.8 mmol/L (3.5-5.1); UREA NITROGEN, BLOOD 20 mg/dL (7-18)
== END 2017-10-16 21:46 | DRG 871 ==
LOC: MED 03:23 → EDBD 03:23 → TELE 04:28 → MED 10-06 10:15 → TELE 10-06 13:30 → MED 10-10 15:25
PROVIDERS: ADMIT Internal Medicine; ATTEND Internal Medicine
PROC: 0DB18ZX Excision of Upper Esophagus, Via Natural or Artificial Opening Endoscopic, Diagnostic (ICD-10-PCS; principal; 2017-10-08 11:45)
DX: A41.9 Sepsis, unspecified organism (principal); J10.00 Influenza due to other identified influenza virus with unspecified type of pneumonia; I21.A1 Myocardial infarction type 2; J96.01 Acute respiratory failure with hypoxia; A04.72 Enterocolitis due to Clostridium difficile, not specified as recurrent; I50.33 Acute on chronic diastolic (congestive) heart failure; G92 Toxic encephalopathy; B37.81 Candidal esophagitis; D62 Acute posthemorrhagic anemia; D68.9 Coagulation defect, unspecified; K92.1 Melena; N12 Tubulo-interstitial nephritis, not specified as acute or chronic; J98.11 Atelectasis; I11.0 Hypertensive heart disease with heart failure; E83.42 Hypomagnesemia; E83.51 Hypocalcemia; N28.1 Cyst of kidney, acquired; N31.9 Neuromuscular dysfunction of bladder, unspecified; R31.0 Gross hematuria; N40.1 Benign prostatic hyperplasia with lower urinary tract symptoms; R33.8 Other retention of urine; R97.20 Elevated prostate specific antigen [PSA]; E78.5 Hyperlipidemia, unspecified; H40.9 Unspecified glaucoma; I87.2 Venous insufficiency (chronic) (peripheral); H54.61 Unqualified visual loss, right eye, normal vision left eye; Z86.73 Personal history of transient ischemic attack (TIA), and cerebral infarction without residual deficits; I25.10 Atherosclerotic heart disease of native coronary artery without angina pectoris; Z87.440 Personal history of urinary (tract) infections; Z79.899 Other long term (current) drug therapy; K44.9 Diaphragmatic hernia without obstruction or gangrene; E66.9 Obesity, unspecified; Z68.35 Body mass index [BMI] 35.0-35.9, adult; Z71.3 Dietary counseling and surveillance; D50.9 Iron deficiency anemia, unspecified; E09.9 Drug or chemical induced diabetes mellitus without complications; M81.0 Age-related osteoporosis without current pathological fracture; E87.6 Hypokalemia; I08.3 Combined rheumatic disorders of mitral, aortic and tricuspid valves; D63.8 Anemia in other chronic diseases classified elsewhere; F03.90 Unspecified dementia, unspecified severity, without behavioral disturbance, psychotic disturbance, mood disturbance, and anxiety; F41.9 Anxiety disorder, unspecified
CPT/HCPCS: 36415; 70030-TC; 71045; 74018; 76770; 82746; 82784; 83550; 83605; 83690; 83735; 84100; 84153; 84155; 84165; 84443; 85025; 85730; 86334; 87040; 87070; 87086; 87400; 92523; 92526; 92610; 93307; 94640; 97110; 97116; 97530; A4217; J0696; J1815; J1956; J2060; J2270; J2358; J2920; J2930; J3370; J3475; J3490; J3590; J7030; J7060; J7070; J7120; J7512